=== PATIENT | female | born 1935 | race Hispanic/Latino ===

== ENCOUNTER 2020-06-04 06:17 | Observation (INO) | payer MEDICARE ==
[2020-06-02 15:04] LABS: BASOPHILS % (AUTO) 0.7 % (0.0-5.0); EOSINOPHILS % (AUTO) 0.3 % (0.0-8.0); HEMATOCRIT 32.7 % (36-48); LYMPHOCYTES % (AUTO) 7.6 % (21.0-51.0); MEAN CORPUSCULAR HGB CONC 28.4 g/dL (32.0-36.0); MONOCYTES % (AUTO) 5.5 % (3.0-13.0); NEUTROPHILS % (AUTO) 85.4 % (40.0-77.0); PLATELET COUNT (AUTO) 216 K/uL (130-400); RED BLOOD CELL COUNT(AUTO) 4.42 MIL/uL (4.00-5.50); RED CELL DISTRIBUTION WIDTH 18.6 % (11.0-15.5); WHITE BLOOD COUNT (AUTO) 7.5 K/uL (4.8-10.8)
[2020-06-02 15:14] LABS: CREATININE 1.4 mg/dL (0.5-1.5); POTASSIUM 4.7 mmol/L (3.5-5.1)
[2020-06-02 15:18] LABS: INR 1.06 (0.85-1.15); PARTIAL THROMBOPLASTIN TIME 24.9 SEC (26.3-35.5); PROTHROMBIN TIME 11.4 SEC (9.6-11.6)
--- NOTE | 2020-06-03 09:55 | NUR ---
ABNORMAL LABS REPORTED TO ASHLEY Garrido- NO NEW ORDERS. THANK YOU
[2020-06-03 11:36] VITALS: BP 162/82
[2020-06-03] MEDS: CEFAZOLIN SODIUM 1 GM VIAL IVP SCH (13:00)
[~2020-06-04] VITALS: Ht 144.8 cm; Wt 60.6 kg
[~2020-06-04 06:17] MED LIST: APIX2.5T PO; DILT120C92 PO; FLUT1BLS3 IH; FOLIC ACID PO; LEVO100T12 PO; MECL-183 PO; POTA-79 PO; PRED5TAB PO; PREG100C55 PO
[2020-06-04 07:08] VITALS: BP 164/91
[2020-06-04] MEDS ORDERED: CEFAZOLIN SODIUM 1 GM VIAL ONE (07:15)
[2020-06-04] MEDS ORDERED: BUPIVACAINE/PF 0.25% 30ML VIAL IJ ONE (07:15)
[2020-06-04] MEDS ORDERED: MIDAZOLAM HCL 1 MG/ML 2ML VIAL ONE ×2 (07:15→09:09)
[2020-06-04] MEDS ORDERED: LIDOCAINE HCL 1% MDV 50ML VIAL ONE (07:16)
[2020-06-04] MEDS ORDERED: MEPERIDINE-PF 25 MG/ML SYG ONE ×3 (07:16→09:25)
--- NOTE | 2020-06-04 07:24 | NUR ---
PROCEDURE PT HERE FOR PROCEDURE. DENIES ANY PAIN
--- NOTE | 2020-06-04 07:30 | NUR ---
PROCEDURE PT TAKEN TO PROCEDURE VIA BED BY CATH STAFF ISAURO JIMENES
[2020-06-04] MEDS ORDERED: IOHEXOL-350 50ML VIAL IV ONE (07:31)
[2020-06-04] MEDS ORDERED: SODIUM CHLORIDE 0.9% 1000ML 1,000 ML IV ONE (07:33)
[2020-06-04] MEDS ORDERED: MECLIZINE HCL 12.5 MG TABLET PO PRN (10:30)
[2020-06-04] MEDS ORDERED: ACETAMINOPHEN-CODEINE 300/30MG TAB PO PRN (10:30)
[2020-06-04] MEDS: PREGABALIN 100 MG CAPSULE PO SCH ×2 (10:30→18:30)
[2020-06-04 10:55] VITALS: BP 137/75
[2020-06-04 11:10] VITALS: BP 123/75
[2020-06-04] MEDS: CEFAZOLIN SODIUM 1 GM VIAL IVP SCH (11:24)
[2020-06-04 11:25] VITALS: BP 121/62
--- NOTE | 2020-06-04 12:42 | NUR ---
PT ARRIVAL 1045: Pt transported to unit via hospital bed in NAD. Placed on serial VS machine, telemetry monitoring. Pt noted to be sleepy d/t medications administered during new pacemaker placement. Sling noted to left arm d/t arm restrictions. Awaiting pt arousal. VSS, RR even and unlabored, airway intact. Will continue to monitor.
[2020-06-04] MEDS ORDERED: GLUCAGON 1MG KIT 1 MG ML IM PRN (16:45)
[2020-06-04] MEDS ORDERED: DEXTROSE 50%-WATER 50 ML DISP.SYRIN IV PRN (16:45)
[2020-06-04 16:49] VITALS: BP 152/71
[2020-06-04 20:00] VITALS: BP 175/80
[2020-06-04] MEDS ORDERED: APIXABAN 2.5 MG TABLET PO SCH (21:00)
[2020-06-05] VITALS: BP 177/79
[2020-06-05] MEDS ORDERED: METOPROLOL TARTRATE 1 MG/ML 5ML VIAL IV ONE ×2 (01:44→02:21)
[2020-06-05] MEDS ORDERED: METOPROLOL TARTRATE 1 MG/ML 5ML VIAL IV PRN (01:45)
[2020-06-05] MEDS: PREGABALIN 100 MG CAPSULE PO SCH ×2 (01:53→09:45)
--- NOTE | 2020-06-05 01:57 | NUR ---
Afib RVR Patient HR was sustaining in the 140s Afib RVR. Dr. Loomis was paged and he gave orders for lopressor 5mg IV [id number] for HR >100 & 5mg IV lopressor for HR >100 Q4hr PRN (ok to give if SBP greater than 105)
[2020-06-05 04:00] VITALS: BP 115/63
[2020-06-05 08:00] VITALS: BP 130/73
--- NOTE | 2020-06-05 08:15 | NUR ---
AM ASSESSMENT PT LAYING IN BED, HOB ELEVATED 30 DEGREES, RESTING. SPA SPEAKING ONLY. PT STATES FEELING VERY SLEEP IN SPA. A/O X 2-3. FORGETFUL. NO SOB. NO DISTRESS NOTED. DENIES CHEST PAIN OR DISCOMFORT. DENIES PALPITATIONS. DENIES INCISIONAL PAIN. TELE: AFIB. LT UPPER CHEST DSG DRY & INTACT. NO HEMATOMA NOTED. NO DRAINAGE NOTED. SLING TO LT ARM. PPM ARM PRECAUTIONS REINFORCED. PT STATES UNDERSTANDING. DENIES N/V AND/OR DIARRHEA. UP W/ASSISTANCE. PT USES [facility]. BED FALL ALARM ON. INSTRUCTED TO CALL FOR ASSISTANCE. CALL [facility] W/IN REACH.
[2020-06-05] MEDS ORDERED: POTASSIUM CHLORIDE 20 MEQ ERTAB PO SCH (09:00)
[2020-06-05] MEDS ORDERED: DILTIAZEM HCL 120 MG CAP.SR.24H PO SCH (09:00)
[2020-06-05] MEDS ORDERED: **HM** TRELEGY ELLIPTA IH SCH (09:00)
[2020-06-05] MEDS ORDERED: PREDNISONE 10 MG TABLET PO SCH (09:00)
[2020-06-05] MEDS: CEFAZOLIN SODIUM 1 GM VIAL IVP SCH (09:45)
--- NOTE | 2020-06-05 10:57 | NUR ---
DISCHARGE VERBAL & WRITTEN DISCHARGE INSTRUCTIONS GIVEN TO PT' DAUGHTER, YASHIRA LEIVA, OVER TELEPHONE. QUESTIONS ENCOURAGED & CLARIFIED. PROPER CARE & ACTIVITY AFTER NEW PPM SYSTEM REVIEWED. PT TO RESUME TAKING ELIQUIS 06/06/20. PT TO F/U W DR BANSAL IN 10-14 DAYS.
[2020-06-05 11:00] VITALS: BP 102/50
--- NOTE | 2020-06-05 11:10 | NUR ---
DISCHARGE DISCHARGE INSTRUCTIONS REINFORCED W/PT @ THIS TIME. PT UNABLE TO SIGN DC FORMS. TELE JEANE REMOVED. IV DC'D @ THIS TIME.
--- NOTE | 2020-06-05 12:25 | NUR ---
[facility] PT'S DAGHTER HERE TO TAKE PT HOME. PT TAKEN TO PRIVATE VEHICLE VIA WC BY MYSELF, Yunior MOHR RN. NO DISTRESS NOTED.
[2020-06-06] MEDS ORDERED: FOLIC ACID 1 MG TABLET PO SCH (09:00)
== END 2020-06-05 12:25 | disposition home or self-care (01) ==
LOC: DAH 06:17 → DAHIP 06:18 → DAH 06:18 → 4AH 11:13
PROVIDERS: ADMIT Internal Medicine; ATTEND Internal Medicine
DX: I49.5 Sick sinus syndrome (principal); I48.0 Paroxysmal atrial fibrillation; I10 Essential (primary) hypertension; J44.9 Chronic obstructive pulmonary disease, unspecified; E03.9 Hypothyroidism, unspecified; Z95.0 Presence of cardiac pacemaker
CPT/HCPCS: 33208; 36415; 71045; 80048; 82948 ×6; 85025; 85610; 85730; 93005; 96374; 96376; A4215; A4216; A4221; A4222; A4223 ×3; A4606; A4663; C1769 ×2; C1785; C1898 ×2; G0378 ×19; J0690; J2175 ×3; J2250 ×2; J3490 ×5; J7030; J7512; Q9967; 99156; 99157

== ENCOUNTER → 2023-09-06 | Outpatient (CLI) | payer MEDICARE ==
[~2023-09-06] MED LIST changes: +DILT120C78 PO; -DILT120C92 PO; -MECL-183 PO; +MECL-226 PO; +POTA-364 PO; -POTA-79 PO; -PREG100C55 PO; +PREG100C56 PO
[2023-09-06 16:14] LABS: BASOPHILS # (AUTO) 0.04 K/uL (0.00-0.20); BASOPHILS % (AUTO) 0.8 % (0.0-5.0); HEMATOCRIT 31.5 % (36-48); IMMATURE GRANULOCYTE ABSOLUTE 0.01 K/uL (0-1); LYMPHOCYTES # (AUTO) 1.1 K/uL (1.0-4.8); LYMPHOCYTES % (AUTO) 21.6 % (21.0-51.0); MEAN CORPUSCULAR HEMOGLOBIN 31.1 pg (27.0-33.0); MEAN CORPUSCULAR HGB CONC 32.7 g/dL (32.0-36.0); MEAN CORPUSCULAR VOLUME 95.2 fL (79-99); MONOCYTES # (AUTO) 0.5 K/uL (0.1-1.0); MONOCYTES % (AUTO) 10.7 % (3.0-13.0); NEUTROPHILS # (AUTO) 3.3 K/uL (1.8-7.7); NEUTROPHILS % (AUTO) 64.7 % (40.0-77.0); PLATELET COUNT (AUTO) 224 K/uL (130-400); RED BLOOD CELL COUNT(AUTO) 3.31 MIL/uL (4.00-5.50); RED CELL DISTRIBUTION WIDTH 14.3 % (11.0-15.5); WHITE BLOOD COUNT (AUTO) 5.1 K/uL (4.8-10.8)
[2023-09-06 16:42] LABS: BILIRUBIN,TOTAL 0.5 mg/dL (0.2-1.0); CREATININE 1.7 mg/dL (0.5-1.5); MAGNESIUM 2.1 mg/dL (1.80-2.40); POTASSIUM 5.3 mmol/L (3.5-5.1); THYROID STIMULATING HORMONE 0.13 uIU/mL (0.36-3.74); TOTAL PROTEIN, SERUM 7.3 g/dL (6.0-8.3)
== END | disposition home or self-care (01) ==
LOC: LAB 15:09
PROVIDERS: ATTEND Internal Medicine Cardiovascular Disease
DX: I48.0 Paroxysmal atrial fibrillation (principal); I50.33 Acute on chronic diastolic (congestive) heart failure
CPT/HCPCS: 36415; 80053; 83735; 83880; 84439; 84443; 85025